=== PATIENT | male | born 1965 | race Two or more races ===

== ENCOUNTER 2017-11-02 18:42 | Emergency (ER) | payer MEDICAID ==
[~2017-11-02] VITALS: Ht 165.1 cm; Wt 79.4 kg
[2017-11-02] MEDS ORDERED: DISULFIRAM250 MG PO (18:59)
--- NOTE | 2017-11-02 19:43 | Emergency Room Report ---
History of Present Illness General Chief Complaint: Overdose Source: Patient, Medical Record, EMS Present Illness HPI [id number] brought in for evaluation after suspected he overdosed on disulfiram Patient stated he had verbal argument with , pretended to take his disulfram but flushed them in toilet Didnt take any other meication Patient denies SI, HI, AVH No previous suicide attempts Take disulfram from [facility] to help him quit ETOH Denies chest pain, SOB, abd pain, vomiting, urinary complaints Feels well otherwise Allergies: Coded Allergies: No Known Allergies (Unverified , 11/02/17) Patient History Past Medical History: none Past Surgical History: none Pertinent Family History: none Social History: Denies: smoking, alcohol use, drug use Immunizations: UTD Reviewed Nursing Documentation: PMH: Agreed, PSxH: Agreed Nursing Documentation-PMH Past Medical History: No History, Except For Review of Systems All Other Systems: negative except mentioned in HPI Physical Exam Vital Signs Date Time Temp Pulse Resp B/P (MAP) Pulse Ox O2 Delivery O2 Flow Rate FiO2 11/02/17 18:33 97.7 97 16 150/99 99 Room Air Sp02 EP Interpretation: reviewed, normal General Appearance: normal inspection, well appearing, no apparent distress, alert, GCS 15, non-toxic, other - pleasant, cooperative, NAD Head: normocephalic, atraumatic Eyes: bilateral eye PERRL, bilateral eye EOMI ENT: normal ENT inspection, hearing grossly normal, normal pharynx, no angioedema, normal voice, TMs + canals normal, uvula midline, moist mucus membranes Neck: normal inspection, full range of motion, supple, thyroid normal, no meningismus, no bony tend Respiratory: normal inspection, lungs clear, normal breath sounds, no rhonchi, no respiratory distress, no retraction, no accessory muscle use, no wheezing, speaking full sentences Cardiovascular #1: regular rate, rhythm, no edema, no JVD, normal capillary refill Gastrointestinal: normal inspection, normal bowel sounds, non tender, soft, no mass, no peritonitis, non-distended, no guarding, no hernia, no pulsatile mass Genitourinary: no CVA tenderness Musculoskeletal: normal inspection, back normal, normal range of motion, no calf tenderness, pelvis stable, Belkys's Sign negative Neurologic: normal inspection, alert, oriented x3, responsive, office runner III-XII nml as tested, motor strength/tone normal, cerebellar normal, normal gait, speech normal Psychiatric: normal inspection, judgement/insight normal, mood/affect normal, no suicidal/homicidal ideation, no delusions Skin: normal inspection, normal color, no rash Lymphatic: normal inspection, no adenopathy Medical Decision Making Diagnostic Impression: Primary Impression: General medical exam ER Course 52 year-old male brought in for suspected overdose Vital signs stable Afebrile Low suspicion that patient actually overdosed I believe patient that he flushed medication If he had taken that much disulfiram he would be symptomatic No known psychiatric history Not on hold Denies SI or HI ER course: Patient has remained stable during ED stay. Patient is to be discharged to home. Patient is instructed to follow up with their primary care doctor within 5 days. Strict return precautions discussed with patient such as fever, chills, worsening/severe pain, nausea, vomiting, which may indicate severe illness. Patient verbalizes understanding and agrees with plan. Please note that this Emergency Department Report was dictated using [employer] opening and picking technology software, occasionally this can lead to erroneous entry secondary to interpretation by the dictation equipment Last Vital Signs Date Time Temp Pulse Resp B/P (MAP) Pulse Ox O2 Delivery O2 Flow Rate FiO2 11/02/17 18:49 80 16 Room Air 11/02/17 18:33 97.7 150/99 99 Status: improved Disposition: HOME, SELF-CARE Condition: Improved Patient Instructions: Medical Screening Exam JOSSELYN MICHAELS M.D. Nov 02, 2017 19:43
[2017-11-02 19:48] VITALS: BP_SYST 146; BP_SYST 150; BP_DIAS 83; BP_DIAS 99
== END 2017-11-02 19:50 | disposition home or self-care (01) ==
LOC: EDBD 18:42 → EMR 18:45
DX: Z04.8 Encounter for examination and observation for other specified reasons (principal)
CPT/HCPCS: 80307; 99283